=== PATIENT | male | born 1960 | race Caucasian/White ===

== ENCOUNTER 2016-08-25 09:41 | Observation (INO) | payer OTHER ==
[2016-08-20 10:46] LABS: BASOPHILS ABSOLUTE 0.06 10/3/uL (0.0-0.16); EOSINOPHILS 3.9 %; EOSINOPHILS ABSOLUTE 0.24 10/3/uL (0.0-0.53); HEMATOCRIT 44.9 % (40.0-51.0); HEMOGLOBIN 16.6 g/dL (13.6-17.8); IMMATURE GRANULOCYTES 0.5 %; IMMATURE GRANULOCYTES ABSOLUTE 0.03 10/3/uL (0.0-0.11); LYMPHOCYTES ABSOLUTE 1.91 10/3/uL (0.67-4.30); MEAN CORPUSCULAR VOLUME 83.9 fL (80-100); MEAN PLATELET VOLUME 9.6 fL (9.2-13.0); MONOCYTES 5.5 %; MONOCYTES ABSOLUTE 0.34 10/3/uL (0.21-1.20); NEUTROPHILS 58.1 %; NEUTROPHILS ABSOLUTE 3.58 10/3/uL (2.02-8.40); PLATELET COUNT 136 10/3/uL (150-400); RBC DISTRIBUTION WIDTH 13.7 % (12.0-16.0); RED CELL COUNT 5.35 10/6/uL (4.7-6.1); WHITE BLOOD CELLS 6.2 10/3/uL (4.5-10.5)
[2016-08-20 10:48] LABS: MANUAL DIFF NO %
[2016-08-20 11:04] LABS: MACROCYTES 1+ (5-10/OIF) (0-5/OIF); PLATELET ESTIMATE SLT DEC (ADEQUATE)
[2016-08-20 11:05] LABS: ALBUMIN 3.8 G/DL (3.5-5.0); ALKALINE PHOSPHATASE 94 U/L (45-117); BUN (BLOOD UREA NITROGEN) 12 MG/DL (6-23); CHLORIDE, SERUM 102 MMOL/L (96-112); GFR AFRICAN AMERICAN 110 ML/MIN (>=60); GFR NON AFRICAN AMERICAN 95 ML/MIN (>=60); GLOBULIN 3.9 G/DL (2.5-4.1); SGOT(AST) 49 U/L (5-40); SGPT(ALT) 73 U/L (5-65); SODIUM, SERUM 136 MMOL/L (135-148); TOTAL BILIRUBIN 0.8 MG/DL (0-1.2); TOTAL PROTEIN 7.7 G/DL (6.0-8.5)
[2016-08-20 11:06] LABS: CO2 (CARBON DIOXIDE) 23 MMOL/L (24-34); GLUCOSE, SERUM 386 MG/DL (60-99)
--- NOTE | ~2016-08-25 | PREOPHP ---
PreOp History and Physical [address] [id number] [place]. [address] NAME: CAREN OWENS : 60 [place] [facility] [place] [id number] AGE: 56 ADM/REG DATE : MR#: [id number] REPORT SERV DATE: 08/25/16 DICTATED BY: JO LINDER III DATE: 08/13/16 REPORT STATUS : Draft TRANSCRIBED BY: MODMerrill DATE: 08/13/16 HISTORY OF PRESENT ILLNESS: This 56-year-old male comes to the operating room for open repair of his symptomatic recurrent incisional hernia. The patient has incisional hernia over his mid abdomen. This hernia is associated with local pain and discomfort. The patient has had no nausea, vomiting, or obstructive symptoms. He comes now for repair of this hernia. The hernia was previously repaired in August of 2014. PAST MEDICAL HISTORY: 1. Hyperlipidemia. 2. Type 2 diabetes mellitus. 3. Hypertension. 4. Obesity. MEDICATIONS: Amlodipine, citalopram, Magi, fenofibrate, hydrochlorothiazide, losartan, metformin, vitamins, [place], pravastatin, and testosterone. ALLERGIES: PENICILLIN. REVIEW OF SYSTEMS: The patient complains of back pain. His 14-point review of systems is otherwise unremarkable except for chronic cough. PAST SURGICAL HISTORY: Includes back surgery and incisional hernia repair x2. PHYSICAL EXAMINATION: GENERAL: This is a large, obese male with a large protuberant abdomen. He is alert and oriented x3. HEENT: Unremarkable. Cranial nerves 2 through 12 are normal. LUNGS: Clear. CARDIAC: Normal. ABDOMEN: Obese and protuberant, but soft. Nontender. He has a large diastasis recti. In the mid abdomen, just superior to a previous incision, several centimeters above the umbilicus, is an incisional hernia. The fascial defect is some 3 cm in size. The hernia is reducible. EXTREMITIES: Normal. ASSESSMENT: 1. A 56-year-old male with symptomatic recurrent incisional hernia. 2. Hypertension. 3. History of deep venous thrombosis in the past. 4. History of incisional hernia repair x2. 5. Hyperlipidemia. 6. Non-insulin dependent diabetes mellitus. PLAN: The patient comes to the operating room for open repair of this recurrent symptomatic incisional hernia. This procedure, the risks, benefits and alternatives, including but not limited to the risk for bleeding, infection, enterotomy, injury to any abdominal structure, PreOp History and Physical [address] [place] [address] NAME: CAREN OWENS : 60 [place] [facility] [place] [id number] AGE: 56 ADM/REG DATE : MR#: [id number] REPORT SERV DATE: 08/25/16 DICTATED BY: JO LINDER III DATE: 08/13/16 REPORT STATUS : Draft TRANSCRIBED BY: JUNG DATE: 08/13/16 postop small bowel obstruction, ileus, seroma formation, hematoma formation, recurrence of the hernia, infection of the mesh or enterocutaneous fistula requiring removal of the mesh and unforeseen complications including deep venous thrombosis, pulmonary embolus, myocardial infarction, stroke, pneumonia and , have been explained to the patient prior to surgery. The expected length of recovery has been explained. The patient's questions have been answered. He understands the risks and agrees to surgery as planned. DIDIER/JUNG Jo Linder III, M.D. / [id number]
--- NOTE | ~2016-08-25 | OP ---
Record Of Operation [facility] [address] [place]. [address] NAME: CAREN OWENS : 60 STATUS : ADM IN PAT#: [id number] AGE: 56 ADM/REG DATE : 08/25/16 MR#: [id number] REPORT SERV DATE: 08/26/16 DICTATED BY: JO LINDER III DATE: 08/25/16 REPORT STATUS : Draft TRANSCRIBED BY: MODMerrill DATE: 08/25/16 DATE OF PROCEDURE: 08/25/2016 PREOPERATIVE DIAGNOSIS: Recurrent symptomatic incisional hernia. POSTOPERATIVE DIAGNOSIS: Recurrent symptomatic incisional hernia. PROCEDURE: Repair of recurrent symptomatic incisional hernia with Prolene mesh. SURGEON: Jo Linder M.D. ANESTHESIA: General with intubation. COMPLICATIONS: None. ESTIMATED BLOOD LOSS: Less than 10 mL. SPECIMENS: None. DRAINS: Sam-Barber in subcutaneous tissue. LAP AND SPONGE COUNT: Correct x3. BRIEF HISTORY: This 56-year-old male presented with a symptomatic recurrent periumbilical incisional hernia. It was felt that open repair of the hernia is indicated. This procedure, the risks, benefits, and alternatives, including but not limited to the risk for bleeding, infection, enterotomy, injury to any abdominal structure, postop small bowel obstruction, ileus, seroma formation, hematoma formation, recurrence of the hernia, infection of the mesh, or enterocutaneous fistula requiring removal of the mesh, and unforeseen complications including deep venous thrombosis, pulmonary embolus, myocardial infarction, stroke, pneumonia, and , were fully explained to the patient prior to surgery. His questions were answered. He understood the risks and agreed to the surgery as planned. PROCEDURE IN DETAIL: After being properly identified and discussing risks of surgery with the patient and family again in the preoperative area, the patient was taken to the operating room and placed in the supine position on the operating room table. General anesthesia was administered, and he was intubated without difficulty. The abdomen was prepped and draped sterilely in the usual fashion. After an appropriate "time-out" per JCAHO standards, a midline incision was made directly over the hernia, beginning several centimeters above the navel and continuing to below the navel. The incision was continued through the subcutaneous tissue. Hemostasis was controlled with cautery. The fascia defect was identified. There were dense adhesions around the defect. There was old mesh which was noted to be incorporating the surrounding tissues. A portion of the mesh had pulled away from the abdominal wall. Record Of Operation [facility] [address] [place]. [address] NAME: CAREN OWENS : 60 STATUS : ADM IN PAT#: [id number] AGE: 56 ADM/REG DATE : 08/25/16 MR#: [id number] REPORT SERV DATE: 08/26/16 DICTATED BY: JO LINDER III DATE: 08/25/16 REPORT STATUS : Draft TRANSCRIBED BY: JUNG DATE: 08/25/16 Using sharp dissection, the skin and subcutaneous tissue around the fascia anteriorly was fully mobilized for about 3 cm. There were numerous adhesions adherent to the old mesh posteriorly. Using sharp dissection, these adhesions were carefully divided around the entire periphery of the defect so as to fully define the fascial defect posteriorly. The majority of the old mesh was incorporated within the abdominal wall and was left in place. It was felt that removal of it would cause significant bleeding and trauma to the tissues. A Ventralight Lightweight Prolene mesh was selected of the appropriate size. This was cut for the appropriate size for the defect. This was placed posterior to the fascia. This was placed so as to overlie the edges of the fascia by 3 cm on all sides. The mesh was then secured around the edges of the defect with short segments of interrupted #1 Prolene sutures. Upon completion of this, the mesh lay nicely posterior to the defect, it was not twisted or kinked in anyway and was not under any tension. Hemostasis was assured. The wound was irrigated with saline. The fascial edges were closed anteriorly over the mesh with interrupted #1 Prolene sutures. A Sam-Barber drain was brought through a separate stab wound and placed in the subcutaneous tissue. The subcutaneous tissue was closed with running 3-0 chromic suture. The skin was closed with running subcuticular 4-0 Monocryl stitch. The incision was injected with 0.5% Marcaine. Dressings were applied. Anesthesia was reversed. The patient was taken to the recovery room in stable condition. He tolerated the procedure well. His family was informed of results of surgery. The patient will remain in the hospital for postoperative care. DIDIER/JUNG Jo Linder III, M.D. / [id number] CC: Jo Linder III, M.D.
--- NOTE | ~2016-08-25 | DS ---
Discharge Summary [facility] [address] [place]. [address] NAME: CAREN OWENS : 60 STATUS : DIS [facility] PAT#: [id number] AGE: 56 ADM/REG DATE : 08/25/16 MR#: [id number] REPORT SERV DATE: 09/05/16 DICTATED BY: JO LINDER III DATE: 09/04/16 REPORT STATUS : Draft TRANSCRIBED BY: JUNG DATE: 09/04/16 Data Collection from hospitalization DISCHARGE DIAGNOSES: 1. Recurrent symptomatic incisional hernia. 2. Type 2 diabetes mellitus. 3. Hypertension. 4. Hyperlipidemia. 5. Obesity. CONSULTATIONS: None. PROCEDURES PERFORMED: Repair of recurrent symptomatic incisional hernia with Prolene mesh, 08/25/2016. PATHOLOGY: ( ) DISCHARGE MEDICATIONS: Norvasc 10 mg every morning, aspirin 81 mg daily, Celexa 20 mg daily, Hyzaar 1 tablet every morning, Glucophage 500 mg three times a day, Promega 1 g twice a day, Prilosec 20 mg every morning, Percocet 7.5/325 one tablet every six hours as needed, DHEA as instructed, Pravachol 20 mg at bedtime, Flomax 0.4 mg every evening, and Restoril 15 mg at bedtime as needed. CONDITION ON DISCHARGE: Stable. DISPOSITION: The patient was discharged home on an 1800-calorie soft diabetic/GI diet with activities as instructed. He would follow up with me, 09/04/2016. HOSPITAL COURSE: This is a 56-year-old man, who presented with symptomatic recurrent periumbilical incisional hernia. It was felt that open repair of the hernia was indicated. Treatment options were discussed, and it was elected to proceed with surgical intervention. He was admitted to the hospital for further evaluation and treatment. Upon admission, he was taken to the operating room where he underwent the above-mentioned procedure. He tolerated this well, there were no complications. On postop day #1, he did complain of some incisional pain, this required narcotics. His Sarabia catheter was removed. On the 12th, he said he was feeling much better but still had some incisional pain. He remained afebrile. His diet was advanced. Discharge planning was performed. On 08/28/2016, discharge instructions were given. Due to his improved and stable condition, he was discharged home with the above-stated instructions. Information collected by: Carissa Slaughter I submit the above information as my discharge summary. CHANDRA/JUNG Discharge Summary [address] [address] [address] [place]. [address] NAME: CAREN OWENS : 60 STATUS : DIS [facility] PAT#: [id number] AGE: 56 ADM/REG DATE : 08/25/16 MR#: [id number] REPORT SERV DATE: 09/05/16 DICTATED BY: JO LINDER III DATE: 09/04/16 REPORT STATUS : Draft TRANSCRIBED BY: JUNG DATE: 09/04/16 Jo Linder III, M.D. / [id number] CC: Dorothy Matamoros III, M.D.
[~2016-08-25 09:41] MED LIST: ASAB PO; CELEXA10 PO; CELEXA20 PO; DHE1; FLOMAX4 PO; GLUCPH PO; HYZAAR1 TAB PO; LOTENSIN HCT1 TA2 PO; METHOC500B PO; METHOC750B PO; MILK THISTLE PO; MULTIVITAMI1 PO; NORV10 PO; PERCOCET 7.5/321 TAB PO; PERCOCET1 TA4 PO; PRAVAC PO; PRILO PO; PROMEGA PO; VITAMIN D31000 UNIT PO; VITC500 PO; [UNRECOGNIZED DRUG - MIXTURE] TOP
[2016-08-26 06:25] LABS: BASOPHILS 0.4 %; BASOPHILS ABSOLUTE 0.04 10/3/uL (0.0-0.16); EOSINOPHILS 0.3 %; EOSINOPHILS ABSOLUTE 0.03 10/3/uL (0.0-0.53); HEMATOCRIT 45.9 % (40.0-51.0); HEMOGLOBIN 16.8 g/dL (13.6-17.8); IMMATURE GRANULOCYTES 0.1 %; IMMATURE GRANULOCYTES ABSOLUTE 0.01 10/3/uL (0.0-0.11); LYMPHOCYTES 17.5 %; LYMPHOCYTES ABSOLUTE 1.63 10/3/uL (0.67-4.30); MEAN CORPUS HGB CONC 36.6 g/dL (32.0-36.0); MEAN CORPUSCULAR HEMOGLOB 31.5 pg (26.0-34.0); MEAN PLATELET VOLUME 9.5 fL (9.2-13.0); MONOCYTES 5.4 %; NEUTROPHILS 76.3 %; NEUTROPHILS ABSOLUTE 7.12 10/3/uL (2.02-8.40); PLATELET COUNT 165 10/3/uL (150-400); RBC DISTRIBUTION WIDTH 13.6 % (12.0-16.0); RED CELL COUNT 5.34 10/6/uL (4.7-6.1)
[2016-08-26 06:26] LABS: MANUAL DIFF NO %; WHITE BLOOD CELLS 9.3 10/3/uL (4.5-10.5)
[2016-08-26 06:35] LABS: BUN (BLOOD UREA NITROGEN) 13 MG/DL (6-23); CHLORIDE, SERUM 107 MMOL/L (96-112); CO2 (CARBON DIOXIDE) 24 MMOL/L (24-34); CREATININE 0.84 MG/DL (0.70-1.30); GFR AFRICAN AMERICAN 113 ML/MIN (>=60); GFR NON AFRICAN AMERICAN 98 ML/MIN (>=60); GLUCOSE, SERUM 164 MG/DL (60-99); POTASSIUM, SERUM 4.1 MMOL/L (3.5-5.3); SODIUM, SERUM 139 MMOL/L (135-148)
[2016-08-26 06:47] LABS: PLATELET ESTIMATE ADQ (ADEQUATE)
[2016-08-27 06:48] LABS: BASOPHILS 0.7 %; BASOPHILS ABSOLUTE 0.06 10/3/uL (0.0-0.16); EOSINOPHILS 2.6 %; EOSINOPHILS ABSOLUTE 0.22 10/3/uL (0.0-0.53); HEMATOCRIT 45.9 % (40.0-51.0); HEMOGLOBIN 16.9 g/dL (13.6-17.8); IMMATURE GRANULOCYTES 0.2 %; IMMATURE GRANULOCYTES ABSOLUTE 0.02 10/3/uL (0.0-0.11); LYMPHOCYTES 21.5 %; LYMPHOCYTES ABSOLUTE 1.79 10/3/uL (0.67-4.30); MEAN CORPUS HGB CONC 36.8 g/dL (32.0-36.0); MEAN CORPUSCULAR HEMOGLOB 31.2 pg (26.0-34.0); MEAN CORPUSCULAR VOLUME 84.8 fL (80-100); MEAN PLATELET VOLUME 9.9 fL (9.2-13.0); MONOCYTES ABSOLUTE 0.67 10/3/uL (0.21-1.20); NEUTROPHILS ABSOLUTE 5.58 10/3/uL (2.02-8.40); PLATELET COUNT 152 10/3/uL (150-400); RBC DISTRIBUTION WIDTH 14.1 % (12.0-16.0); RED CELL COUNT 5.41 10/6/uL (4.7-6.1); WHITE BLOOD CELLS 8.3 10/3/uL (4.5-10.5)
[2016-08-27 06:49] LABS: MANUAL DIFF NO %
[2016-08-27 07:02] LABS: BUN (BLOOD UREA NITROGEN) 16 MG/DL (6-23); CALCIUM, SERUM 8.8 MG/DL (8.5-10.4); CHLORIDE, SERUM 107 MMOL/L (96-112); CO2 (CARBON DIOXIDE) 24 MMOL/L (24-34); CREATININE 0.79 MG/DL (0.70-1.30); GFR AFRICAN AMERICAN 116 ML/MIN (>=60); GFR NON AFRICAN AMERICAN 100 ML/MIN (>=60); GLUCOSE, SERUM 138 MG/DL (60-99); POTASSIUM, SERUM 3.8 MMOL/L (3.5-5.3); SODIUM, SERUM 140 MMOL/L (135-148)
[2016-08-28] MEDS ORDERED: REST15 PO (10:12)
== END 2016-08-28 19:52 | disposition home or self-care (01) ==
LOC: SDC/OF 09:41 → PACU 12:54 → 5SO 14:12
PROVIDERS: Surgery
PROC: 0WUF0JZ Supplement Abdominal Wall with Synthetic Substitute, Open Approach (ICD-10-PCS; principal; 2016-08-25 11:15)
DX: K43.2 Incisional hernia without obstruction or gangrene (principal); E78.5 Hyperlipidemia, unspecified; E11.9 Type 2 diabetes mellitus without complications; I10 Essential (primary) hypertension; E66.9 Obesity, unspecified; Z88.0 Allergy status to penicillin; Z86.718 Personal history of other venous thrombosis and embolism; Z79.899 Other long term (current) drug therapy
CPT/HCPCS: 71020; 80048; 80053; 82962; 85025; 87641; 93005; 96374; 96376; A9270-GY; C1781; G0378; J2250; J2405; J2710; J2795; J3010; J3370